=== PATIENT | female | born 1960 | race African-American/Black ===

== ENCOUNTER 2016-05-04 17:30 | Emergency (ER) | payer SELFPAY ==
[~2016-05-04] VITALS: Ht 165.1 cm; Wt 83.7 kg
[~2016-05-04 17:30] MED LIST: ASPI81TA28 PO
[2016-05-04 17:34] VITALS: TEMP 36.9; Ht 165.1 cm; Wt 83.7 kg
[2016-05-04] MEDS ORDERED: IBUPROFEN 600 MG TAB PO STA (18:04)
[2016-05-04] MEDS ORDERED: ACETAMINOPHEN 500 MG TAB PO STA (18:04)
--- NOTE | 2016-05-04 20:10 | DIAGNOSTIC IMAGING REPORT ---
LEFT BREAST ULTRASOUND CLINICAL HISTORY: Left breast pain. Past infection with surgery. COMPARISON STUDY: Left breast ultrasound February 09, 2016. TECHNIQUE: Sonography of the left breast was performed. FINDINGS: Note was made of a simple appearing 3.8 x 3.5 x 0.8 cm elongated fluid collection within the left breast at the 12:00 position. No hyperemia is identified within the adjacent soft tissues. This fluid collection was not evident on exam of February 09, 2016. IMPRESSION: Simple appearing 3.8 x 3.5 x 0.8 cm left breast fluid collection at the 12:00 position which appears new since exam of February 09, 2016. The sonographic appearance is nonspecific. Correlation with surgical history is recommended as this could reflect a seroma. A breast abscess is within the differential although abscesses are typically more complex appearing. This could be correlated with surgical history and clinical evidence for an infectious process. Electronically signed by: Jordan Hartman M.D. 05/04/2016 8:09 PM Dictated Date/Time: 05/04/2016 7:34 PM
[2016-05-04 20:24] VITALS: BP 100/55; PULSE 85; O2SAT 97
--- NOTE | 2016-05-05 00:09 | EMERGENCY ROOM VISIT NOTE ---
History First contact with patient: 17:50 Chief Complaint: WOUND INFECTION Stated Complaint: RT BREAST INCISION,POSSIBLE INFECTION History of Present Illness The patient is a 55 year old female who presents to the Emergency Room with complaints of left-sided breast pain worsening over the past 24 hours. The patient has a history of infection of this breast, and followed with the wound clinic and breast care clinic a few months ago with similar symptoms. The patient ultimately required surgical intervention, and antibiotics. She does not have injury or trauma. No fever or chills. No nipple drainage. Her symptoms feel similar to that past episode, and she now presents for further evaluation. She does not have chest pain or shortness of breath. She rates her discomfort a 4/10. Review of Systems More than 10 systems were reviewed and otherwise negative with the exception of history of present illness. Past Medical/Surgical History Medical Problems: (1) Diabetes (2) Hypertension (3) Mastitis of left breast unrelated to or (4) No pertinent past medical history Family History Patient reports no known family medical history. Social History Smoking Status: Unknown if Ever Smoked Alcohol Use: none Drug Use: none Marital Status: Housing Status: lives with family Occupation Status: unemployed Current/Historical Medications Unable to Obtain Active Prescriptions or Reported Meds Allergies Coded Allergies: No Known Allergies (Unverified , 05/04/16) Physical Exam Vital Signs Date Time Temp Pulse Resp B/P Pulse Ox O2 Delivery O2 Flow Rate FiO2 05/04/16 20:24 85 18 100/55 97 05/04/16 17:34 36.9 94 17 123/87 100 Room Air Pain Rating (0-10): 2.0 Physical Exam VITALS: Vitals are noted on the nurse's note and reviewed by myself. Vital signs stable. GENERAL: Well-developed, well-nourished, female, who is in no acute distress and resting comfortably. Patient is cooperative with the examination. HEAD: Normocephalic atraumatic. HEART: Regular rate and rhythm without murmurs gallops or rubs. LUNGS: Clear to auscultation bilaterally without wheezes, rales or rhonchi. No retractions or accessory muscle use. NEURO: Patient was alert and oriented to person place and time. CN II through XII grossly intact. 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 The left breast is tender just above the area low without obvious mass, abscess, erythema , or edema. There is a well-healing scar consistent with surgical procedure just above the nipple, and this is maximally tender at the medial aspect of this scar. No other areas of notable tenderness appreciated. Medical Decision & Procedures ER Provider Diagnostic Interpretation: LEFT BREAST ULTRASOUND CLINICAL HISTORY: Left breast pain. Past infection with surgery. COMPARISON STUDY: Left breast ultrasound February 09, 2016. TECHNIQUE: Sonography of the left breast was performed. FINDINGS: Note was made of a simple appearing 3.8 x 3.5 x 0.8 cm elongated fluid collection within the left breast at the 12:00 position. No hyperemia is identified within the adjacent soft tissues. This fluid collection was not evident on exam of February 09, 2016. IMPRESSION: Simple appearing 3.8 x 3.5 x 0.8 cm left breast fluid collection at the 12:00 position which appears new since exam of February 09, 2016. The sonographic appearance is nonspecific. Correlation with surgical history is recommended as this could reflect a seroma. A breast abscess is within the differential although abscesses are typically more complex appearing. This could be correlated with surgical history and clinical evidence for an infectious process. Medications Administered Medications (Trade) Dose Ordered Sig/Gilbert Route Start Time Stop Time Status Last Admin Dose Admin Acetaminophen (Tylenol Tab) 1,000 mg NOW STAT PO 05/04/16 18:04 05/04/16 18:06 DC 05/04/16 18:24 1,000 MG Ibuprofen (Motrin Tab) 600 mg NOW STAT PO 05/04/16 18:04 05/04/16 18:06 DC 05/04/16 18:25 600 MG ED Course Physical exam and history were performed. Nursing notes and EMR were reviewed. Patient appears to have tenderness of her left breast for the past one day. She does have a past history of mastitis and is concerned that this may have returned. On exam there is tenderness just above the areola. Because of her symptoms she was given ibuprofen and Tylenol here in the department. Ultrasound was ordered. Ultrasound was performed, and was read by radiology as showing what appears to be a seroma or simple cyst. I returned to the patient's room to provide her results and determine an appropriate plan of care, however the patient had eloped. We were not able to find her here in the department, nor did she return. We attempted to contact the patient, but were not able to do so. The charge nurse was notified. The patient ultimately needs to follow up again with the breast care clinic. She was not given discharge instructions, as again she eloped prior to completion of her emergency department visit. The chart was completed utilizing [employer] Speech Voice Recognition Software. Grammatical errors, random word insertions, pronoun errors, and incomplete sentences are an occasional consequence of this system due to software limitations, ambient noise, and hardware issues. Any formal questions or concerns about the content, text, or information contained within the body of this dictation should be directly addressed to the provider for clarification. . Medical Decision Differential diagnosis includes, but is not limited to: Mastitis, cancer, abscess, cyst, and others Impression Primary Impression: Pain of left breast Departure Information Dispostion Against Medical Advice Condition GOOD Prescriptions Unable to Obtain Active Prescriptions or Reported Meds Referrals No Doctor, Assigned (PCP) Forms WORK / SCHOOL INSTRUCTIONS, HOME CARE DOCUMENTATION FORM, IMPORTANT VISIT INFORMATION Patient Instructions My [facility] [employer]
== END 2016-05-04 20:25 | disposition left against medical advice (07) ==
LOC: C.EDB 17:32 → C.EDD 20:25
DX: N64.4 Mastodynia (principal); E11.9 Type 2 diabetes mellitus without complications; I10 Essential (primary) hypertension

== ENCOUNTER 2016-09-06 17:11 | Emergency (ER) | payer SELFPAY ==
[~2016-09-06] VITALS: Ht 152.4 cm; Wt 86.1 kg
[2016-09-06 17:18] VITALS: BP 127/85; PULSE 84; TEMP 36.8; O2SAT 100; Ht 152.4 cm; Wt 86.1 kg
[2016-09-06] MEDS ORDERED: LSN5 PO (17:33)
[2016-09-06] MEDS ORDERED: PROP20TA67 PO (17:33)
[2016-09-06] MEDS ORDERED: GLC/500 PO (17:33)
[2016-09-06] MEDS ORDERED: PENI-82 PO (17:51)
[2016-09-06] MEDS ORDERED: TRAM-10 PO (17:51)
--- NOTE | 2016-09-06 17:54 | EMERGENCY ROOM VISIT NOTE ---
ED Visit Note First contact with patient: 17:28 CHIEF COMPLAINT: Toothache x2 weeks HISTORY OF PRESENT ILLNESS: This 56-year-old female patient presented to the emergency department with her brother, with a progressive toothache for past 2 weeks. It is important to note the patient does not speak Georgian, and her primary language is Creole. A director export was called on the iPad in the emergency department, and discussion between patient and provider was had with the assistance of the director export. The patient believes the pain is coming from her right upper back molar. The pain is now steady and severe and radiates to the face. The patient does not have a dentist appointment set up because since she has been in the [facility], she has not been established with a dentist. They rate their pain a 10/10 and the patient has taken no OTC medications for relief of the pain because she states she was instructed by a breast surgeon in [facility] that she is not to take any medications which were not prescribed to her. The patient states she cannot stand the pain anymore. The pain is keeping the patient up at night. Denies facial swelling or fever. The patient denies any discharge from the mouth. REVIEW OF SYSTEMS: A 6 system review of systems was completed with positives and pertinent negatives listed in the HPI. ALLERGIES: None MEDICATIONS: Lisinopril, metformin, propranolol. These were obtained online because patient was uncertain of medication names. PMH: Hypertension, diabetes SOCIAL HISTORY: Patient lives locally with her brother. She denies tobacco, alcohol, drug use. PHYSICAL EXAM: Vitals are noted on the nurse's note and reviewed by myself. Vital signs stable. Temperature 36.8C orally. GENERAL: [], in no acute distress, nondiaphoretic, well-developed well-nourished. Mouth: The #1 tooth is very carious and the gum is erythematous, swollen, and tender around it, without any discharge or signs of an abscess. The remainder of the pharynx and tonsils are without erythema, edema, or exudate. The airway is patent. There is no facial swelling, cervical or submandibular lymphadenopathy. The patient appears uncomfortable and in pain. The patient has overall good dental hygiene. EARS: External auditory canals clear, tympanic membranes pearly mosquera without erythema or effusion bilaterally. ED COURSE: The patient was seen and evaluated as above, with the assistance of the director export. I provided the patient with a dose of tramadol in the emergency department. The patient was given discharge instructions and discharged home in good condition. DIAGNOSIS: Odontalgia DIFFERENTIAL DIAGNOSIS: Dental abscess, dental caries, acute sinusitis, acute otitis media, and others. DISCHARGE INSTRUCTIONS & TREATMENT: You have been treated in the Emergency Department for Dental Pain. You have been prescribed tramadol to be used for pain control. This is a narcotic medication. You cannot drive or consume alcohol while on this medicine. This medicine should only be used for pain that cannot be controlled with rdyk-mzv-juoqoyp pain medicines. You were prescribed Pen-V K to be taken 3 times daily for 10 days. This is an antibiotic. All antibiotics have the potential to cause diarrhea. Stop this medication and contact a medical provider if you were to develop any significant adverse side effects including: wheezing, shortness of breath, passing out, vomiting, or a diffuse rash. Always take antibiotics as directed and COMPLETE the ENTIRE course regardless of the improvement of your symptoms. For pain control, you can use the following pvhv-gcd-tkbmrvx medicines (if >12 yo): - Regular strength (325mg/tab) Tylenol (acetaminophen) 2 tabs every 4-6 hours as needed. Do not exceed 12 tablets in a 24 hour period. Avoid taking more than 4 grams (4000 mg) of Tylenol per day. This includes any other sources of acetaminophen you may take on a regular basis. - Regular strength (200 mg/tab) Advil (ibuprofen) 1-2 tabs every 4-6 hours as needed. Do not exceed a dose of 3200 mg per day. These medications can be purchased [id number]. Refrain from smoking cigarettes or using chewing tobacco until you have been evaluated by your dentist. Keeping beverages lukewarm and consuming soft foods can decrease your pain. Warm compresses over the affected area may offer some relief. You MUST seek evaluation of your dental pain by a dentist following your visit to the Emergency Department. The Emergency Department is not capable of treating dental issues long-term. You should call your dentist as soon as possible to make an appointment for evaluation of your dental pain. Return to the emergency department if you develop the following symptoms despite treatment course outlined above: fever, intractable pain, increased redness, swelling, or purulent discharge. Current/Historical Medications Scheduled Lisinopril (Lisinopril), 5 MG PO QAM Metformin Hcl (Glucophage), 500 MG PO BIDM Penicillin V Potassium (Veetids), 500 MG PO TID Propranolol (Inderal), 20 MG PO BID Scheduled PRN Tramadol (Ultram), 50 MG PO Q6 PRN for Pain Allergies Coded Allergies: No Known Allergies (Unverified , 09/06/16) Vital Signs Date Time Temp Pulse Resp B/P (MAP) Pulse Ox O2 Delivery O2 Flow Rate FiO2 09/06/16 17:18 36.8 84 18 127/85 100 Room Air Departure Information Impression Primary Impression: Odontalgia Dispostion Home / Self-Care Condition GOOD Prescriptions Tramadol (Ultram) 50 Mg Tab 50 MG PO Q6 Y for Pain, #12 TAB Prov: Shannon Hawthorne PA-C 09/06/16 Penicillin V Potassium (Veetids) 500 Mg Tab 500 MG PO TID for 10 Days, #30 TAB Prov: Shannon Hawthorne PA-C 09/06/16 Referrals [facility] (PCP) Patient Instructions ED Tooth Pain, [facility] Additional Instructions You have been treated in the Emergency Department for Dental Pain. You have been prescribed tramadol to be used for pain control. This is a narcotic medication. You cannot drive or consume alcohol while on this medicine. This medicine should only be used for pain that cannot be controlled with gvmu-ccw-ewidihz pain medicines. You were prescribed Pen-V K to be taken 3 times daily for 10 days. This is an antibiotic. All antibiotics have the potential to cause diarrhea. Stop this medication and contact a medical provider if you were to develop any significant adverse side effects including: wheezing, shortness of breath, passing out, vomiting, or a diffuse rash. Always take antibiotics as directed and COMPLETE the ENTIRE course regardless of the improvement of your symptoms. For pain control, you can use the following tmnu-nvt-mbhwlnx medicines (if >12 yo): - Regular strength (325mg/tab) Tylenol (acetaminophen) 2 tabs every 4-6 hours as needed. Do not exceed 12 tablets in a 24 hour period. Avoid taking more than 4 grams (4000 mg) of Tylenol per day. This includes any other sources of acetaminophen you may take on a regular basis. - Regular strength (200 mg/tab) Advil (ibuprofen) 1-2 tabs every 4-6 hours as needed. Do not exceed a dose of 3200 mg per day. These medications can be purchased [id number]-ocyvpxo. Refrain from smoking cigarettes or using chewing tobacco until you have been evaluated by your dentist. Keeping beverages lukewarm and consuming soft foods can decrease your pain. Warm compresses over the affected area may offer some relief. You MUST seek evaluation of your dental pain by a dentist following your visit to the Emergency Department. The Emergency Department is not capable of treating dental issues long-term. You should call your dentist as soon as possible to make an appointment for evaluation of your dental pain. Return to the emergency department if you develop the following symptoms despite treatment course outlined above: fever, intractable pain, increased redness, swelling, or purulent discharge.
[2016-09-06] MEDS ORDERED: TRAMADOL HCL 50 MG TAB PO STA (18:03)
== END 2016-09-06 18:17 | disposition home or self-care (01) ==
LOC: C.EDB 17:17 → C.EDD 18:17
DX: K08.89 Other specified disorders of teeth and supporting structures (principal); I10 Essential (primary) hypertension; E11.9 Type 2 diabetes mellitus without complications